=== PATIENT | female | born 1995 | race Caucasian/White ===

== ENCOUNTER 2017-05-01 12:19 | Outpatient (CLI) | payer MEDICAID ==
[~2017-05-01] VITALS: Ht 165.1 cm; Wt 90.0 kg
[~2017-05-01 12:19] MED LIST: IBUP-1223 PO; OXYC-302 PO; PREN1TAB69 PO
[2017-05-01 12:28] VITALS: BP 115/64
== END 2017-05-01 14:37 | disposition home or self-care (01) ==
LOC: LDOP 12:19
PROVIDERS: ATTEND Obstetrics & Gynecology
DX: O26.893 Other specified pregnancy related conditions, third trimester (principal); O42.913 Preterm premature rupture of membranes, unspecified as to length of time between rupture and onset of labor, third trimester; O99.343 Other mental disorders complicating pregnancy, third trimester; R10.9 Unspecified abdominal pain; F32.9 Major depressive disorder, single episode, unspecified; Z3A.31 31 weeks gestation of pregnancy
CPT/HCPCS: 59025; 89060; 99211; G0463; Q0114

== ENCOUNTER 2017-07-04 05:36 | Inpatient (IN) | payer MEDICAID ==
[~2017-07-04] VITALS: Ht 165.1 cm; Wt 92.7 kg
[2017-07-04] MEDS ORDERED: OXYTOCIN 30U/ 0.9% NaCL 500ML 500 ML IV ONE (05:38)
[2017-07-04 05:46] VITALS: BP 113/63
[2017-07-04] MEDS ORDERED: OXYTOCIN 30U/ 0.9% NaCL 500ML 500 ML ONE ×2 (05:52→12:44)
[2017-07-04] MEDS ORDERED: NEWBORN KIT ONE (05:52)
[2017-07-04] MEDS ORDERED: FENTANYL PF 100 MCG/2ML IV PRN (06:00)
[2017-07-04] MEDS ORDERED: ONDANSETRON 2MG/ML, 2ML IVPush PRN (06:00)
[2017-07-04] MEDS: LACTATED RINGERS 1,000 ML IV SCH ×3 (06:04→13:22)
[2017-07-04 06:05] LABS: BASOPHILS # (AUTO) 0.03 x10^3/uL (0-0.1); BASOPHILS % (AUTO) 0 % (0-1); EOSINOPHILS # (AUTO) 0.02 x10^3/uL (0-0.4); EOSINOPHILS % (AUTO) 0 % (1-7); LYMPHOCYTES # (AUTO) 1.96 x10^3/uL (1-3.4); LYMPHOCYTES % (AUTO) 25 % (22-44); MD NO; MEAN CORPUSCULAR HGB CONC 32.6 g/dL (32.4-35.8); MEAN CORPUSCULAR VOLUME 82.9 fL (80-100); MEAN PLATELET VOLUME 8.9 fL (7.4-10.4); MONOCYTES # (AUTO) 0.65 x10^3/uL (0.2-0.8); MONOCYTES % (AUTO) 8 % (2-9); NEUTROPHILS # (AUTO) 5.21 x10^3/uL (1.8-6.8); NEUTROPHILS % (AUTO) 66 % (42-75); PLATELET COUNT 284 x10^3/uL (130-400); RED BLOOD COUNT 4.19 x10^6/uL (3.82-5.3); RED CELL DISTRIBUTION WIDTH 15.6 % (9.6-15.2)
[2017-07-04] MEDS ORDERED: FENTANYL PF 100 MCG/2ML ONE ×3 (06:35→08:24)
[2017-07-04] MEDS: FENTANYL PF 100 MCG/2ML IVPush PRN ×2 (06:36→07:35)
[2017-07-04] MEDS ORDERED: BUPIVACAINE 0.25% ONE (08:24)
[2017-07-04] MEDS ORDERED: FENTANYL/BUPIV./NS/PF 250 ML EPIDCONT ONE (08:24)
[2017-07-04] MEDS ORDERED: BISACODYL 10 MG SUPP PR PRN (12:00)
[2017-07-04] MEDS ORDERED: OXYTOCIN 30U/ 0.9% NaCL 500ML 500 ML IV SCH (12:00)
[2017-07-04] MEDS ORDERED: HYDROcodone/APAP 5/325 TABLET PO PRN (12:00)
[2017-07-04] MEDS ORDERED: MISOPROSTOL 200 MCG TABLET PR PRN (12:00)
[2017-07-04] MEDS ORDERED: CALCIUM CARBONATE 500 MG TAB.CHEW PO PRN (12:00)
[2017-07-04] MEDS ORDERED: METHYLERGONOVINE 0.2 MG/ML IM PRN (12:00)
[2017-07-04] MEDS ORDERED: ACETAMINOPHEN 325 MG TABLET PO PRN ×2 (12:00)
[2017-07-04] MEDS: OXYTOCIN 30U/ 0.9% NaCL 500ML 500 ML IV SCH ×3 (12:00→14:52)
[2017-07-04] MEDS ORDERED: ONDANSETRON 2MG/ML, 2ML IV PRN (12:00)
[2017-07-04] MEDS ORDERED: IBUPROFEN 600 MG TABLET ONE (12:44)
[2017-07-04] MEDS: IBUPROFEN 600 MG TABLET PO PRN ×2 (12:51→19:16)
[2017-07-04 15:30] VITALS: BP 116/72
[2017-07-04] MEDS: DOCUSATE 100 MG CAPSULE PO PRN (19:16)
[2017-07-04 19:44] VITALS: BP 115/77
[2017-07-04 20:01] LABS: BASOPHILS # (AUTO) 0.06 x10^3/uL (0-0.1); BASOPHILS % (AUTO) 1 % (0-1); EOSINOPHILS # (AUTO) 0.01 x10^3/uL (0-0.4); EOSINOPHILS % (AUTO) 0 % (1-7); LYMPHOCYTES # (AUTO) 1.74 x10^3/uL (1-3.4); LYMPHOCYTES % (AUTO) 16 % (22-44); MD NO; MEAN CORPUSCULAR HEMOGLOBIN 27.4 pg (27.0-34.8); MEAN CORPUSCULAR HGB CONC 32.9 g/dL (32.4-35.8); MEAN CORPUSCULAR VOLUME 83.2 fL (80-100); MEAN PLATELET VOLUME 9.1 fL (7.4-10.4); MONOCYTES # (AUTO) 0.66 x10^3/uL (0.2-0.8); MONOCYTES % (AUTO) 6 % (2-9); NEUTROPHILS # (AUTO) 8.59 x10^3/uL (1.8-6.8); NEUTROPHILS % (AUTO) 78 % (42-75); PLATELET COUNT 260 x10^3/uL (130-400); RED BLOOD COUNT 3.72 x10^6/uL (3.82-5.3); RED CELL DISTRIBUTION WIDTH 16.2 % (9.6-15.2)
[2017-07-04] MEDS: HYDROcodone/APAP 5/325 TABLET PO PRN (20:50)
[2017-07-04 23:50] VITALS: BP 98/60
[2017-07-05] MEDS: HYDROcodone/APAP 5/325 TABLET PO PRN ×5 (01:04→15:39)
[2017-07-05] MEDS: IBUPROFEN 600 MG TABLET PO PRN ×3 (01:05→15:39)
[2017-07-05 05:45] VITALS: BP 102/66
[2017-07-05 07:45] VITALS: BP 132/90
[2017-07-05] MEDS: DOCUSATE 100 MG CAPSULE PO PRN (07:49)
[2017-07-05] MEDS ORDERED: PRENATAL VIT/IRON/FA 1 EACH TABLET PO SCH (09:00)
[2017-07-05] MEDS ORDERED: IBUP-1223 PO (16:21)
[2017-07-05] MEDS ORDERED: DOCU-131 PO (16:22)
[2017-07-05] MEDS ORDERED: HYDR-3237 PO (16:24)
[2017-07-05] MEDS ORDERED: MEASLES,MUMPS&RUBELLA VACC/PF 0.5 ML SQ-VACC ONE (17:00)
== END 2017-07-05 18:30 | disposition home or self-care (01) | DRG 775 ==
LOC: LDIP 05:36 → 2NW 15:13
PROVIDERS: ADMIT Obstetrics & Gynecology; ATTEND Obstetrics & Gynecology
PROC: 10E0XZZ Delivery of Products of Conception, External Approach (ICD-10-PCS; principal; 2017-07-04)
PROC: 10907ZC Drainage of Amniotic Fluid, Therapeutic from Products of Conception, Via Natural or Artificial Opening (ICD-10-PCS; 2017-07-04)
PROC: 0UQMXZZ Repair Vulva, External Approach (ICD-10-PCS; 2017-07-04)
PROC: 3E0R3BZ Introduction of Anesthetic Agent into Spinal Canal, Percutaneous Approach (ICD-10-PCS; 2017-07-04)
PROC: 00HU33Z Insertion of Infusion Device into Spinal Canal, Percutaneous Approach (ICD-10-PCS; 2017-07-04)
DX: O48.0 Post-term pregnancy (principal); O71.82 Other specified trauma to perineum and vulva; O77.0 Labor and delivery complicated by meconium in amniotic fluid; Z37.0 Single live birth; Z3A.41 41 weeks gestation of pregnancy; Z80.3 Family history of malignant neoplasm of breast
CPT/HCPCS: 36415; 85025; 86850; 86900; J3010; J2590; J7120

== ENCOUNTER 2018-02-23 14:32 | Emergency (ER) | payer MEDICAID ==
[~2018-02-23] VITALS: Ht 165.1 cm; Wt 87.4 kg
[~2018-02-23 14:32] MED LIST changes: +DOCU-131 PO; +HYDR-3237 PO
[2018-02-23 14:43] VITALS: BP 136/95
== END 2018-02-23 15:19 | disposition home or self-care (01) ==
LOC: ED 15:00
DX: H66.001 Acute suppurative otitis media without spontaneous rupture of ear drum, right ear (principal)
CPT/HCPCS: 99283